=== PATIENT | male | born 2005 | race Caucasian/White ===

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

== ENCOUNTER 2025-10-15 09:31 | Emergency (ER) | payer SELFPAY ==
[2025-10-15 09:44] VITALS: BP 147/90; PULSE 75; RESP 16; TEMP 37.1; O2SAT 100; BMI 23.0
--- NOTE | 2025-10-15 09:50 | W.ED.DENTAL ---
HPI - Dental/Oral General: Chief complaint: Dental/Oral Stated complaint: tooth pain Time Seen by Provider: 10/15/25 09:45 History of Present Illness: Patient presents to the emergency department today for complaint of left lower dental pain. Patient reports this has been going on intermittently for a year. He reports he has been covering his tooth with a wax and the pain has continued. Related Data Previous Rx's ?Medication ?Instructions ?Recorded albuterol sulfate 90 mcg/actuation 2 puff inhalation Q4H PRN 03/22/25 aerosol inhaler (Ventolin HFA) shortness of breath or wheezing #8.5 grams doxycycline hyclate 100 mg tablet 100 mg PO BID 7 days #14 tabs 03/22/25 prednisone 20 mg tablet 20 mg PO DAILY 5 days #5 tabs 03/22/25 clindamycin HCl 150 mg capsule 450 mg (3 x 150 mg) PO Q6H 10/15/25 (Cleocin HCl) Infection 10 days #120 caps ibuprofen 800 mg tablet 800 mg PO Q8H PRN pain #30 tabs 10/15/25 Allergies Allergy/AdvReac Type Severity Reaction Status Date / Time Penicillins Allergy Unknown Verified 03/22/25 17:41 [facility] ED PFSH: Social History Smoking and tobacco/nicotine status: never used tobacco/nicotine Physical Exam Const: COMMON NORMALS: no acute distress and patient oriented x3 HENMT: COMMON NORMALS: normocephalic and hearing grossly normal bilaterally HEAD & SCALP: normocephalic OTHER: Left lower gumline at posterior molar with small area of gum erythema consistent with dental abscess. No trismus noted, patient is able to swallow own secretions, airway patent. Neck/C-Spine: COMMON NORMALS: no JVD Chest: COMMONS NORMALS: normal inspection of the chest and normal palpation of entire chest wall Resp: COMMON NORMALS: normal respiratory effort, No use of accessory muscles and clear to auscultation bilaterally AUSCULTATION: clear to auscultation bilaterally Cardio: COMMON NORMALS: no JVD, regular rate, regular rhythm, S1 normal heart sound present, S2 normal heart sound present and No murmurs present (Cardio) RATE: regular rate RHYTHM: regular rhythm HEART SOUNDS: S1 normal heart sound present and S2 normal heart sound present Neuro: COMMON NORMALS: patient oriented x3 Course Vital Signs: Vital signs: Vital Signs Temperature 98.8 F 10/15/25 09:44 Pulse Rate 75 10/15/25 09:44 Respiratory Rate 16 10/15/25 09:44 Blood Pressure 147/90 10/15/25 09:44 Pulse Oximetry 100 10/15/25 09:44 Oxygen Delivery Me thod Room Air 10/15/25 09:44 MDM - Dental/Oral Medical Decision Making Patient presents to the emergency department today for complaint of left lower dental pain. Patient reports this has been going on intermittently for a year. He reports he has been covering his tooth with a wax and the pain has continued. There is no palpable fluctuance or need for dental block. There is no trismus, no peritonsillar abscess, airway is patent, patient will be started on clindamycin as he is allergic to penicillin. He is also given a dose of narcotic pain medication here in the emergency department. No radiology studies performed this visit Discharge Plan Discharge Patient Disposition: Home Clinical Impression: Dental caries, Dental abscess Condition: Stable Prescriptions: New clindamycin HCl [Cleocin HCl] 150 mg capsule 450 mg PO Q6H 10 Days Qty: 120 0RF ibuprofen 800 mg tablet 800 mg PO Q8H PRN (Reason: pain) Qty: 30 0RF No Action doxycycline hyclate 100 mg tablet 100 mg PO BID 7 Days Qty: 14 0RF prednisone 20 mg tablet 20 mg PO DAILY 5 Days Qty: 5 0RF albuterol sulfate [Ventolin HFA] 90 mcg/actuation HFA aerosol inhaler 2 puff inhalation Q4H PRN (Reason: shortness of breath or wheezing) Qty: 8.5 0RF Discharge Orders: Discharge ED (Routine); Ordered 10/15/25 Ordered By: Lucy Wise Referrals: Mick Anne MD [Primary Care Provider, Family Practice] Discharge Activity: Resume usual activity Patient Instructions: Dental Abscess (ED), Opioid Safety, Pain Management, Patient Portal & Eulogio Instructions Activity Restrictions/Additional Instructions: P.o. ibuprofen every 6-8 hours alternating with Tylenol if you are having an acute episode of pain you may take 1000 mg of acetaminophen/Tylenol with the ibuprofen. Please make a dentist appointment as soon as possible. Please complete the course of antibiotics. Print Language: Yakut Coding Level of Care Code ED Automatic Profile Sander Operator for Roberto Parikh
[2025-10-15] MEDS: HYDROcodone-acetaminophen 7.5-325 mg Tablet 1 TAB PO (09:58)
== END 2025-10-15 10:01 | disposition home or self-care (01) ==
PROVIDERS: Emergency Provider Nurse Practitioner; PCP Family Medicine
DX: K02.9 Dental caries, unspecified (principal); K04.7 Periapical abscess without sinus
CPT/HCPCS: 99283; J9999

== ENCOUNTER 2025-10-17 16:56 | Emergency (ER) | payer SELFPAY ==
[2025-10-17 17:31] VITALS: BP 122/71; PULSE 76; RESP 20; TEMP 36.7; O2SAT 96
--- NOTE | 2025-10-17 18:08 | W.ED.DENTAL ---
Documented by User: OSMAR Morales 10/17/25 18:12 HPI - Dental/Oral General: Chief complaint: Dental/Oral Stated complaint: tooth pain Time Seen by Provider: 10/17/25 17:21 Source: patient Mode of arrival: ambulatory Limitations: no limitations History of Present Illness: Patient is a 20-year-old male presents emergency department complaining of continued left lower jaw pain. He was seen here on Thursday diagnosed with dental abscess, he states he has a dentist appointment on but the pain is too severe. Notes that the swelling has gone down and he does not have any fevers or trouble breathing or tongue or throat swelling, he is just concerned to the amount of pain and thinks that the clindamycin he was prescribed is not working. Also concerned that once he gets to the dentist they will not remove the tooth due to him having continued infection. No other new symptoms at this time, his vitals are stable. MD Complaint: tooth pain Onset (ago): day(s) Duration: worsening Context: history of dental caries and poor dental care Associated symptoms: Denies ear or mastoid pain or fever(s) Treatment prior to arrival: other (abx) Related Data Previous Rx's ?Medication ?Instructions ?Recorded albuterol sulfate 90 mcg/actuation 2 puff inhalation Q4H PRN 03/22/25 aerosol inhaler (Ventolin HFA) shortness of breath or wheezing #8.5 grams prednisone 20 mg tablet 20 mg PO DAILY 5 days #5 tabs 03/22/25 ibuprofen 800 mg tablet 800 mg PO Q8H PRN pain #30 tabs 10/15/25 doxycycline hyclate 100 mg tablet 100 mg PO BID 7 days #14 tabs 10/17/25 Allergies Allergy/AdvReac Type Severity Reaction Status Date / Time Penicillins Allergy Unknown Verified 03/22/25 17:41 Review of Systems General: Reports: 10 or more systems reviewed and unremarkable except in HPI and below Const: Denies: fever(s), chills or fatigue Eyes: Denies: change in vision ENMT: Reports: dental pain and sinus pain; Denies: throat pain, ear or mastoid pain or nasal discharge Card: Denies: chest pain, palpitations, swelling of feet/ankles or lightheadedness Resp: Denies: dyspnea, productive cough or wheezing GI: Denies: abdominal pain, nausea, vomiting, diarrhea or constipation : Denies: flank pain, difficulty urinating, dysuria or urinary frequency Musc: Denies: neck pain, back pain or joint pain Skin/Breast: Denies: rash Neuro: Denies: headache(s), numbness in extremities or weakness in extremities PFSH ED PFSH: Social History Smoking and tobacco/nicotine status: never used tobacco/nicotine Physical Exam Const: COMMON NORMALS: no acute distress and no limitations GENERAL APPEARANCE: cooperative, comfortable and well developed ORIENTATION/CONSCIOUSNESS: Yes awake HENMT: COMMON NORMALS: normocephalic, atraumatic and hearing grossly normal bilaterally HEAD & SCALP: normocephalic and atraumatic OTHER: Overall fair dentition. To left lower jaw there is cracked tooth with mild surrounding edema. There is tender to palpation to the left mandibular region, no significant facial swelling at this time. No posterior oropharyngeal swelling. No tongue or lip swelling. No obvious gingival abscess. Eye: COMMON NORMALS: Equal, round and reactive pupils present, EOMs intact bilaterally and conjunctivae normal CONJUNCTIVA: Yes conjunctivae normal PUPIL: Yes Equal, round and reactive pupils present Neck/C-Spine: COMMON NORMALS: full ROM and supple Resp: COMMON NORMALS: normal respiratory effort, No retractions, No use of accessory muscles and clear to auscultation bilaterally AUSCULTATION: clear to auscultation bilaterally Extremity: COMMON NORMALS: normal to inspection, full ROM and capillary refill normal Skin: COMMON NORMALS: no rashes or lesions noted GENERAL SKIN EXAM: no rashes or lesions noted Course Vital Signs: Vital signs: Vital Signs Temperature 98.0 F 10/17/25 17:31 Pulse Rate 76 10/17/25 17:31 Respiratory Rate 20 H 10/17/25 17:31 Blood Pressure 122/71 10/17/25 17:31 Pulse Oximetry 96 10/17/25 17:31 Oxygen Delivery Me thod Room Air 10/17/25 17:31 MDM - Dental/Oral Medical Decision Making Patient presented stating he was having continued pain despite antibiotic therapy for dental abscess, seen here on Thursday. Notes that he sees the dentist on for evaluation, but is concerned that he is still having infectious etiology and that they will not do anything because of this. On exam there is no significant signs of infection other than the tenderness and gingival edema, likely his pain is from root pathology or fractured tooth, however he is requesting that he have antibiotics switched due to his anxiety about not being seen . He is allergic to penicillins, at his request we will switch to Doxy and he is also requesting shot of Rocephin here in the emergency department. This patient needs evaluated by the dentist for definitive management, no further action here in the emergency department, there is no signs of respiratory compromise or systemic infection. Morphine given for pain here, as he has a ride home. No radiology studies performed this visit Discharge Plan Discharge Patient Disposition: Home Clinical Impression: Dental abscess Condition: Stable Prescriptions: New doxycycline hyclate 100 mg tablet 100 mg PO BID 7 Days Qty: 14 0RF Discontinued doxycycline hyclate 100 mg tablet 100 mg PO BID 7 Days Qty: 14 0RF clindamycin HCl [Cleocin HCl] 150 mg capsule 450 mg PO Q6H 10 Days Qty: 120 0RF No Action prednisone 20 mg tablet 20 mg PO DAILY 5 Days Qty: 5 0RF albuterol sulfate [Ventolin HFA] 90 mcg/actuation HFA aerosol inhaler 2 puff inhalation Q4H PRN (Reason: shortness of breath or wheezing) Qty: 8.5 0RF ibuprofen 800 mg tablet 800 mg PO Q8H PRN (Reason: pain) Qty: 30 0RF Discharge Orders: Discharge ED (Routine); Ordered 10/17/25 Ordered By: John Jewell Referrals: Mick Anne MD [Primary Care Provider, Family Practice] Patient Instructions: Patient Portal & Eulogio Instructions Activity Restrictions/Additional Instructions: Dental Abscess Discharge Instructions You are being discharged after treatment for a dental abscess. Please follow these instructions carefully to ensure proper healing and prevent complications. Medication Changes You are being switched from clindamycin to doxycycline for your infection. Take doxycycline exactly as prescribed until all tablets are finished, even if you feel better. Take this medication with food and a full glass of water to prevent stomach upset. Important: If you develop fever, severe abdominal cramping, or three or more loose bowel movements per day while taking antibiotics, contact your primary care provider immediately, as these may be signs of a serious intestinal infection. Pain Management - Take [place] (hydrocodone/acetaminophen) only for breakthrough pain that is not controlled by [id number] medications - For most dental pain, ibuprofen (400-600 mg) combined with acetaminophen (1000 mg) is very effective and safer than opioid medications - Do not exceed 2,400 mg of ibuprofen or 4,000 mg of acetaminophen in 24 hours - Remember that [place] already contains acetaminophen, so count this toward your daily total to avoid overdose Follow-Up Care You must see a dentist within 2 days. This is critical because antibiotics alone do not cure a dental abscess?the infected tooth needs definitive treatment such as root canal therapy, drainage, or extraction. Call your dentist immediately if you cannot get an appointment within 2 days. Warning Signs?Seek Immediate Care If You Experience: - Worsening swelling, especially if it spreads to your face, neck, or under your jaw - Difficulty breathing or swallowing - Fever over 101?F (38.3?C) - Severe pain that is not controlled by your medications - Pus or drainage that increases rather than decreases General Care Instructions - Rinse your mouth gently with warm salt water (1/2 teaspoon salt in 8 ounces of water) several times daily - Maintain good oral hygiene by brushing gently - Avoid chewing on the affected side - Stay well-hydrated and eat soft foods as tolerated - Do not share your antibiotics with others or save them for later use Medication Safety - [place] may cause drowsiness?do not drive or operate machinery until you know how it affects you - Avoid alcohol while taking these medications - Store all medications safely away from children If you have any questions or concerns, contact your dentist or return to the emergency department. Print Language: Micronesian Coding Level of Care Code ED Sustainable Agriculture Specialist for Chg Fwd Documented by User: García Pearce DO 10/18/25 06:05 HPI - Dental/Oral General: Chief complaint: Dental/Oral Stated complaint: tooth pain Time Seen by Provider: 10/17/25 17:21 Related Data Previous Rx's ?Medication ?Instructions ?Recorded albuterol sulfate 90 mcg/actuation 2 puff inhalation Q4H PRN 03/22/25 aerosol inhaler (Ventolin HFA) shortness of breath or wheezing #8.5 grams prednisone 20 mg tablet 20 mg PO DAILY 5 days #5 tabs 03/22/25 ibuprofen 800 mg tablet 800 mg PO Q8H PRN pain #30 tabs 10/15/25 doxycycline hyclate 100 mg tablet 100 mg PO BID 7 days #14 tabs 10/17/25 Allergies Allergy/AdvReac Type Severity Reaction Status Date / Time Penicillins Allergy Unknown Verified 03/22/25 17:41 PFS ED PFSH: Social History Smoking and tobacco/nicotine status: never used tobacco/nicotine Course Vital Signs: Vital signs: Vital Signs Temperature 98.0 F 10/17/25 17:31 Pulse Rate 76 10/17/25 17:31 Respiratory Rate 20 H 10/17/25 17:31 Blood Pressure 122/71 10/17/25 17:31 Pulse Oximetry 96 10/17/25 17:31 Oxygen Delivery Me thod Room Air 10/17/25 17:31 MDM - Dental/Oral Medical Decision Making Patient presented stating he was having continued pain despite antibiotic therapy for dental abscess, seen here on Thursday. Notes that he sees the dentist on for evaluation, but is concerned that he is still having infectious etiology and that they will not do anything because of this. On exam there is no significant signs of infection other than the tenderness and gingival edema, likely his pain is from root pathology or fractured tooth, however he is requesting that he have antibiotics switched due to his anxiety about not being seen . He is allergic to penicillins, at his request we will switch to Doxy and he is also requesting shot of Rocephin here in the emergency department. This patient needs evaluated by the dentist for definitive management, no further action here in the emergency department, there is no signs of respiratory compromise or systemic infection. Morphine given for pain here, as he has a ride home. Chart reviewed Discharge Plan Discharge Patient Disposition: Home Clinical Impression: Dental abscess Condition: Stable Prescriptions: New doxycycline hyclate 100 mg tablet 100 mg PO BID 7 Days Qty: 14 0RF Discontinued doxycycline hyclate 100 mg tablet 100 mg PO BID 7 Days Qty: 14 0RF clindamycin HCl [Cleocin HCl] 150 mg capsule 450 mg PO Q6H 10 Days Qty: 120 0RF No Action prednisone 20 mg tablet 20 mg PO DAILY 5 Days Qty: 5 0RF albuterol sulfate [Ventolin HFA] 90 mcg/actuation HFA aerosol inhaler 2 puff inhalation Q4H PRN (Reason: shortness of breath or wheezing) Qty: 8.5 0RF ibuprofen 800 mg tablet 800 mg PO Q8H PRN (Reason: pain) Qty: 30 0RF Discharge Orders: Discharge ED (Routine); Ordered 10/17/25 Ordered By: John Jewell Referrals: Mick Anne MD [Primary Care Provider, Family Practice] Patient Instructions: Patient Portal & Eulogio Instructions Activity Restrictions/Additional Instructions: Dental Abscess Discharge Instructions You are being discharged after treatment for a dental abscess. Please follow these instructions carefully to ensure proper healing and prevent complications. Medication Changes You are being switched from clindamycin to doxycycline for your infection. Take doxycycline exactly as prescribed until all tablets are finished, even if you feel better. Take this medication with food and a full glass of water to prevent stomach upset. Important: If you develop fever, severe abdominal cramping, or three or more loose bowel movements per day while taking antibiotics, contact your primary care provider immediately, as these may be signs of a serious intestinal infection. Pain Management - Take [place] (hydrocodone/acetaminophen) only for breakthrough pain that is not controlled by [id number] medications - For most dental pain, ibuprofen (400-600 mg) combined with acetaminophen (1000 mg) is very effective and safer than opioid medications - Do not exceed 2,400 mg of ibuprofen or 4,000 mg of acetaminophen in 24 hours - Remember that [place] already contains acetaminophen, so count this toward your daily total to avoid overdose Follow-Up Care You must see a dentist within 2 days. This is critical because antibiotics alone do not cure a dental abscess?the infected tooth needs definitive treatment such as root canal therapy, drainage, or extraction. Call your dentist immediately if you cannot get an appointment within 2 days. Warning Signs?Seek Immediate Care If You Experience: - Worsening swelling, especially if it spreads to your face, neck, or under your jaw - Difficulty breathing or swallowing - Fever over 101?F (38.3?C) - Severe pain that is not controlled by your medications - Pus or drainage that increases rather than decreases General Care Instructions - Rinse your mouth gently with warm salt water (1/2 teaspoon salt in 8 ounces of water) several times daily - Maintain good oral hygiene by brushing gently - Avoid chewing on the affected side - Stay well-hydrated and eat soft foods as tolerated - Do not share your antibiotics with others or save them for later use Medication Safety - [place] may cause drowsiness?do not drive or operate machinery until you know how it affects you - Avoid alcohol while taking these medications - Store all medications safely away from children If you have any questions or concerns, contact your dentist or return to the emergency department. Print Language: Micronesian Coding Level of Care Code ED Sustainable [employer] Specialist for Roberto Parikh
[2025-10-17] MEDS: cefTRIAXone 1,000 MG in water for injection-sterile 2.1 ML 2.1 MG IM (18:22)
[2025-10-17] MEDS: HYDROcodone-acetaminophen 7.5-325 mg Tablet 2 TAB PO (18:22)
[2025-10-17] MEDS: morphine 4 mg/mL SDV 1 mL IM (18:22)
== END 2025-10-17 18:48 | disposition home or self-care (01) ==
PROVIDERS: Emergency Provider Physician Assistant; PCP Family Medicine
DX: K04.7 Periapical abscess without sinus (principal)
CPT/HCPCS: 96372; 99284; J0696; J1100; J2270; J9999

== ENCOUNTER → 2025-11-05 17:41 | Outpatient (BNVA) | payer SELFPAY | PROVIDERS: PCP Family Medicine; Visit Provider Nurse Practitioner Family | DX: R09.81 Nasal congestion (principal) | CPT/HCPCS: 87071; 87400; 87426; 87880 ==